=== PATIENT | male | born 2000 | race Caucasian/White ===

== ENCOUNTER 2018-06-28 20:04 | Emergency (ER) | payer OTHER ==
[2018-06-28] MEDS: NS 1,000 ML IV (22:17)
[2018-06-28 22:36] LABS: ALBUMIN/GLOBULIN RATIO 1.21 (1.00-1.93); ALKALINE PHOSPHATASE 77 U/L (45-117); ALT/SGPT 19 U/L (12-78); ANION GAP 7 MEQ/L (8-16); AST/SGOT 15 U/L (7-37); BILIRUBIN,DIRECT 0.1 MG/DL (0.0-0.2); BILIRUBIN,TOTAL 0.3 MG/DL (0.2-1.0); BLOOD UREA NITROGEN 19 MG/DL (7-18); C REACTIVE PROTEIN QUANTITATIV < 0.30 MG/DL (0.00-0.30); CALCIUM LEVEL 8.8 MG/DL (8.5-10.1); CARBON DIOXIDE LEVEL 27 MEQ/L (21-32); CHLORIDE LEVEL 108 MEQ/L (98-107); CPK CREATINE PHOSPHOKINASE 96 U/L (39-308); CREATININE FOR GFR 0.97 MG/DL (0.70-1.30); GLUCOSE, FASTING 82 MG/DL (70-100); LIPASE 87 U/L (73-393); SODIUM LEVEL 142 MEQ/L (136-145); TOTAL PROTEIN 7.3 GM/DL (6.4-8.2); TROPONIN I < 0.02 NG/ML (< 0.10)
[2018-06-28 22:41] LABS: BASO # 0.1 10^3/uL (0.0-0.2); BASO % 0.6 % (0.0-1.0); EOS # 0.3 10^3/uL (0.0-0.50); EOS % 2.8 % (0.0-3.0); HEMATOCRIT 44.6 % (42.0-52.0); HEMOGLOBIN 15.1 g/dl (13.5-17.5); IMMATURE GRANULOCYTE % 0.2 % (0-3.0); LYMPH # 3.6 10^3/uL (1.5-6.5); LYMPH % 39.9 % (24.0-44.0); MEAN CORPUSCULAR HEMOGLOBIN 30.2 pg (27.0-33.0); MEAN CORPUSCULAR HGB CONC 33.9 g/dl (32.0-36.5); MEAN CORPUSCULAR VOLUME 89.2 fl (80.0-96.0); MONO # 0.6 10^3/uL (0.0-0.8); MONO % 6.2 % (0.0-5.0); NEUTROPHILS # 4.5 10^3/uL (1.8-7.7); NEUTROPHILS % 50.3 % (36.0-66.0); PLATELET COUNT, AUTOMATED 233 10^3/uL (150-450); RED CELL DISTRIBUTION WIDTH 12.4 % (11.5-14.5); WHITE BLOOD COUNT 8.9 10^3/uL (4.0-10.0)
[2018-06-28 22:42] LABS: CK-MB VALUE MASS < 1.0 NG/ML (<3.6); MB/CK RELATIVE INDEX 1.04 (< OR =4); THYROID STIMULATING HORMONE 0.675 uIU/ML (0.463-3.98)
[2018-06-28 23:00] LABS: ERYTHROCYTE SEDIMENTATION RATE 2 mm/hr (0-15)
[2018-06-28 23:42] LABS: D-DIMER QUANT < 270.0 ng/ml (<500)
[2018-06-29 00:58] LABS: CK-MB VALUE MASS 1.1 NG/ML (<3.6); CPK CREATINE PHOSPHOKINASE 76 U/L (39-308); MB/CK RELATIVE INDEX 1.44 (< OR =4); TROPONIN I < 0.02 NG/ML (< 0.10)
== END 2018-06-29 01:28 | disposition home or self-care (01) ==
LOC: M ED 06-29 01:28
DX: F41.1 Generalized anxiety disorder (principal); Z82.49 Family history of ischemic heart disease and other diseases of the circulatory system; F17.210 Nicotine dependence, cigarettes, uncomplicated
CPT/HCPCS: 71046

== ENCOUNTER 2019-07-11 15:01 | Emergency (ER) | payer OTHER ==
[~2019-07-11] VITALS: Ht 190.5 cm; Wt 105.6 kg
[2019-07-11] MEDS ORDERED: VANI1CRE5 (15:08)
--- NOTE | 2019-07-11 16:58 | REP ---
Clinical: Right testicular pain. Technique: Real time parra scale and color Doppler evaluation using linear and curved array transducers. Findings: The bilateral testicles are normal in contour, size, echogenicity, and vascularity without evidence for torsion, infectious/inflammatory process, or mass lesion. Right epididymis is normal. Left epididymis includes 1.4 mm cyst. No hydrocele. No varicocele. Right testicle measures 4.7 x 2.7 x 3.3 cm. Left testicle measures 4.7 x 2.3 x 3.5 cm. Impression: Essentially normal scrotal ultrasound. Electronically Signed by Willie Santana MD 07/11/2019 04:50 P
[2019-07-11 18:09] LABS: CHLAMYDIA DNA AMPLIFICATION NEGATIVE (NEGATIVE); GC DNA AMPLIFICATION NEGATIVE (NEGATIVE)
[2019-07-11 18:41] VITALS: BP 112/65
== END 2019-07-11 18:45 | disposition home or self-care (01) ==
LOC: M ED 15:01
DX: N50.811 Right testicular pain (principal); F17.210 Nicotine dependence, cigarettes, uncomplicated

== ENCOUNTER 2020-10-02 16:53 | Emergency (ER) | payer OTHER ==
[~2020-10-02] VITALS: Ht 185.4 cm; Wt 106.1 kg
[~2020-10-02 16:53] MED LIST: VANI1CRE5
[2020-10-02] MEDS ORDERED: BENZONATATE 100 MG CAP PO ONE (17:30)
[2020-10-02] MEDS: ALBUTEROL 90 MCG/ACT 8GM HFA INHALER INH SCH ×3 (17:30→18:32)
--- NOTE | 2020-10-02 17:46 | REP ---
INDICATION: productive cough, fever COMPARISON: 06/28/2018 TECHNIQUE: Portable AP view of the chest FINDINGS: The mediastinum and cardiac silhouette are stable and within normal limits for portable technique. The lung gross are clear without acute consolidation, effusion, or pneumothorax. Skeletal structures are intact. IMPRESSION: No acute cardiopulmonary process appreciated. <Electronically signed by Willie Santana > 10/02/20 [id number]
[2020-10-02] MEDS ORDERED: ALBUTEROL 90 MCG/ACT 8GM HFA INHALER INH ONE (19:00)
[2020-10-02] MEDS ORDERED: TESS100C PO (19:03)
[2020-10-02] MEDS ORDERED: MUCI1TAB18 PO (19:03)
[2020-10-02] MEDS ORDERED: PROAAER10 INH (19:03)
[2020-10-02 19:31] VITALS: BP 117/68
== END 2020-10-02 19:33 | disposition home or self-care (01) ==
LOC: M ED 16:53
DX: B34.9 Viral infection, unspecified (principal); R05 Cough; R50.9 Fever, unspecified; M79.10 Myalgia, unspecified site; F17.200 Nicotine dependence, unspecified, uncomplicated
CPT/HCPCS: 71045; 87880; 99284; U0003

== ENCOUNTER 2020-10-06 07:25 | Emergency (ER) | payer OTHER ==
[~2020-10-06] VITALS: Ht 185.4 cm; Wt 105.9 kg
[2020-10-06 07:25] VITALS: BP 139/73
[~2020-10-06 07:25] MED LIST changes: +MUCI1TAB18 PO; +PROAAER10 INH; +TESS100C PO
== END 2020-10-06 08:08 | disposition home or self-care (01) ==
LOC: M ED 07:25
DX: J06.9 Acute upper respiratory infection, unspecified (principal); R11.10 Vomiting, unspecified; F17.210 Nicotine dependence, cigarettes, uncomplicated

== ENCOUNTER 2021-10-07 10:18 | Emergency (ER) | payer OTHER ==
[~2021-10-07] VITALS: Ht 190.5 cm; Wt 95.5 kg
[2021-10-07 11:47] LABS: HEMATOCRIT 47.5 % (42.0-52.0); HEMOGLOBIN 16.3 g/dl (13.5-17.5); MEAN CORPUSCULAR HEMOGLOBIN 29.9 pg (27.0-33.0); MEAN CORPUSCULAR HGB CONC 34.3 g/dl (32.0-36.5); MEAN CORPUSCULAR VOLUME 87.2 fl (80.0-96.0); PLATELET COUNT, AUTOMATED 303 10^3/uL (150-450); RED BLOOD COUNT 5.45 10^6/uL (4.30-6.10); WHITE BLOOD COUNT 8.5 10^3/uL (4.0-10.0)
[2021-10-07 12:05] LABS: AMPHETAMINES LEVEL URINE NEGATIVE (NEGATIVE); BARBITURATES URINE NEGATIVE (NEGATIVE); BENZODIAZEPINES URINE NEGATIVE (NEGATIVE); CANNABINOIDS URINE NEGATIVE (NEGATIVE); COCAINE METABOLITE URINE NEGATIVE (NEGATIVE); METHADONE URINE NEGATIVE (NEGATIVE); OPIATES URINE NEGATIVE (NEGATIVE); PHENCYCLIDINE URINE NEGATIVE (NEGATIVE)
[2021-10-07 12:33] LABS: ACETAMINOPHEN LEVEL < 2.0 UG/ML (10.0-30.0); ALBUMIN 4.3 GM/DL (3.2-5.2); ALT/SGPT 19 U/L (12-78); BILIRUBIN,DIRECT 0.1 MG/DL (0.0-0.2); BILIRUBIN,TOTAL 0.4 MG/DL (0.2-1.0); BLOOD UREA NITROGEN 11 MG/DL (7-18); CALCIUM LEVEL 9.8 MG/DL (8.5-10.1); CARBON DIOXIDE LEVEL 30 MEQ/L (21-32); CHLORIDE LEVEL 104 MEQ/L (98-107); CREATININE FOR GFR 1.12 MG/DL (0.70-1.30); ETHYL ALCOHOL (ETHANOL) 0.003 % (0.000-0.010); GLOMERULAR FILTRATION RATE > 60.0 (>60); GLUCOSE, FASTING 83 MG/DL (70-100); POTASSIUM SERUM 3.9 MEQ/L (3.5-5.1); SALICYLATE LEVEL 2.1 MG/DL (5.0-30.0); SODIUM LEVEL 140 MEQ/L (136-145); THYROID STIMULATING HORMONE 0.661 uIU/ML (0.358-3.740); TOTAL PROTEIN 7.4 GM/DL (6.4-8.2)
[2021-10-07] MEDS ORDERED: NICOTINE 21MG/24HR 1 EA TRANSDERMAL TD ONE (12:55)
[2021-10-07 18:32] LABS: RSV AMPLIFICATION NEGATIVE (NEGATIVE)
[2021-10-07 20:28] VITALS: BP 140/80
== END 2021-10-07 20:31 ==
LOC: M ED 10:18 → EDBD 10:18 → M ED 20:31
DX: R45.851 Suicidal ideations (principal); Z79.899 Other long term (current) drug therapy